=== PATIENT | male | born 1950 | race Caucasian/White ===

== ENCOUNTER 2017-05-31 10:10 | Emergency (ER) | payer MEDICARE ==
[2017-05-31 11:01] LABS: BASOPHILS 0.8 % (0-2); HEMATOCRIT 42.3 % (42.0-54.0); HEMOGLOBIN 14.4 g/dL (13.5-17.5); IMMATURE GRANULOCYTES 0.2 % (0-5); LYMPHOCYTES 28.2 % (15-50); MCH 29.6 pg (26.0-34.0); MEAN PLATELET VOLUME 11.2 fL (7.4-10.4); MONOCYTES 11.8 % (2-11); PLATELET COUNT 167 10x3/uL (130-400); RBC 4.86 10x6/uL (4.20-6.10); RDW 14.8 % (11.5-14.5)
[2017-05-31 11:07] LABS: INR 1.4 (0.85-1.17); PROTIME 16.6 SECONDS (11.6-15.0)
[2017-05-31 11:12] LABS: ALBUMIN 3.5 g/dL (3.4-5.0); ANION GAP 9.5 mmol/L (8-16); BILIRUBIN - TOTAL 0.41 mg/dL (0.2-1.3); CALCIUM 8.9 mg/dL (8.5-10.1); CARBON DIOXIDE 28.8 mmol/L (21.0-32.0); CREATININE - SERUM 1.2 mg/dL (0.6-1.3); POTASSIUM - SERUM 3.3 mmol/L (3.5-5.1); PROTEIN - SERUM 7.5 g/dL (6.4-8.2)
== END 2017-05-31 11:34 | disposition home or self-care (01) ==
LOC: D.ER 10:10
PROVIDERS: Emergency Medicine
DX: I10 Essential (primary) hypertension (principal); I48.91 Unspecified atrial fibrillation; Z85.51 Personal history of malignant neoplasm of bladder

== ENCOUNTER → 2017-09-16 17:01 | Outpatient (CLI) | payer MEDICARE ==
[2017-09-16 20:40] LABS: CALC OSMOLALITY 284 mosm/kg (275-300); CALCIUM 8.9 mg/dL (8.5-10.1); CHLORIDE - SERUM 107 mmol/L (98-107); GLUCOSE 94 mg/dL (74-106); POTASSIUM - SERUM 3.6 mmol/L (3.5-5.1); SODIUM 143 mmol/L (136-145); UREA NITROGEN 13 mg/dL (7-18); eGFR NON AFRICAN AMERICAN 79 mL/min (90-120)
== END | disposition home or self-care (01) ==
LOC: D.LABREF 17:01
PROVIDERS: Internal Medicine Cardiovascular Disease
DX: I10 Essential (primary) hypertension (principal)

== ENCOUNTER → 2018-05-27 17:58 | Outpatient (CLI) | payer MEDICARE ==
[2018-05-27 18:39] LABS: ANION GAP 13.5 mmol/L (8-16); CALCIUM 8.8 mg/dL (8.5-10.1); CARBON DIOXIDE 27.9 mmol/L (21.0-32.0); CREATININE - SERUM 1.1 mg/dL (0.6-1.3); POTASSIUM - SERUM 3.4 mmol/L (3.5-5.1)
== END | disposition home or self-care (01) ==
LOC: D.LABREF 17:58
PROVIDERS: Nurse Practitioner Adult Health
DX: R60.0 Localized edema (principal)

== ENCOUNTER 2018-06-08 12:55 | Inpatient (IN) | payer MEDICARE ==
[~2018-06-08] VITALS: Ht 185.4 cm; Wt 146.1 kg
--- NOTE | ~2018-06-08 | MORECARE ---
CASE MANAGEMENT DISCHARGE SUMMARY PATIENT: DK MENDOZA UNIT: [id number] ADM DATE: 06/08/18 AGE: 67 : 48 SEX: M ROOM/BED: D.1210 AUTHOR: IMELDA,DOC PHYSICIAN: REFERRING PHYSICIAN: MAU VALIENTE MD DATE OF SERVICE: 06/12/18 Discharge Plan Patient Name: DK MENDOZA Facility: [facility]:[place] : 1950 Planned Disposition: Home Anticipated Discharge Date: Discharge Date: 06/11/2018 Expected LOS: Initial Reviewer: [email or web address] Initial Review Date: 06/11/2018 Generated: 06/12/18 12:07 pm Comments DCP- Discharge Planning Updated by [email or web address]: Elizabeth Waggoner on 06/11/18 1:[address] Patient Name: DK MENDOZA Admission Status: ER Accout number: [id number] Admission Date: 06-08-2018 : 1950 Admission Diagnosis: Attending: MAU VALIENTE Current LOS: 3 Anticipated DC Date: 06/11/18 Planned Disposition: Home Primary Insurance: [facility] MEDICARE SOLUTIONS Discharge Planning Comments: CM met with patient about discharge planning / needs. Patient states his plan is to discharge home. 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 States she should be here between 16:00 & 17:00. States his daughter is an RN and will be able to help him get settled back at home. Denies any other discharge planning needs at this time. CM explained and served DC IMM. Will continue to follow and assist as needed with discharge planning / needs. Program Engagement Director: Elizabeth Waggoner DCPIA - Discharge Planning Initial Assessment Updated by [id number]: Elizabeth Waggoner on 06/11/18 1:56 pm * Is the patient Alert and Oriented? Yes * How many steps to enter\exit or inside your home? * PCP Dr Valiente * Pharmacy [facility] * Preadmission Environment Home Alone * ADLs Independent * Equipment CPAP * List name and contact numbers for known caregivers / representatives who currently or will assist patient after discharge: Lori Singh, daughter, * Verbal permission to speak to the caregivers and representatives has been obtained from the patient. N/A * Community resources currently utilized None * Additional services required to return to the preadmission environment? No * Can the patient safely return to the preadmission environment? Yes * Has this patient been hospitalized within the prior 30 days at any hospital? No Coverage Notice Reviewer: [id number] Donna Waggoner Notice Issued Date-Time: 06/11/2018 13:58 Notice Type: IM Discharge Notice Notice Delivered To: Patient Relationship to Patient: Self Lathe Hand Name: Delivery Method: HAND - Hand Delivered Jennifer Days: Prior Verbal Notification: Recipient Understood Notice: Yes Recipient Signature: Yes Med Rec Note Co-signed by Attending: Coverage Notice Comment: Last DP export: 06/11/18 1:07 Patient Name: DK MENDOZA Page 11506 at 1107 All edits/amendments must be made on the electronic document DICTATION DATE: 06/12/186 COUNTER WEIGHER: FAVIOLA 06/12/186 RPT#: [id number] DC DATE:06/11/18 STATUS: DIS IN [facility] [address] [place] [address] END OF REPORT
--- NOTE | ~2018-06-08 | MORECARE ---
CASE MANAGEMENT DISCHARGE SUMMARY PATIENT: DK MENDOZA UNIT: [id number] ADM DATE: 06/08/18 AGE: 67 : 48 SEX: M ROOM/BED: D.1210 AUTHOR: NAHOMI SEGURA PHYSICIAN: REFERRING PHYSICIAN: MAU VALIENTE MD DATE OF SERVICE: 06/11/18 Discharge Plan Patient Name: DK MENDOZA Facility: [facility]:[place] : 1950 Planned Disposition: Home Anticipated Discharge Date: Discharge Date: Expected LOS: Initial Reviewer: [email or web address] Initial Review Date: 06/11/2018 Generated: 06/11/18 2:57 pm DCPIA - Discharge Planning Initial Assessment Updated by [email or web address]: Elizabeth Waggoner on 06/11/18 1:56 pm * Is the patient Alert and Oriented? Yes * How many steps to enter\exit or inside your home? * PCP Dr Valiente * Pharmacy [facility] * Preadmission Environment Home Alone * ADLs Independent * Equipment CPAP * List name and contact numbers for known caregivers / representatives who currently or will assist patient after discharge: Lori Singh, daughter, * Verbal permission to speak to the caregivers and representatives has been obtained from the patient. N/A * Community resources currently utilized None * Additional services required to return to the preadmission environment? No * Can the patient safely return to the preadmission environment? Yes * Has this patient been hospitalized within the prior 30 days at any hospital? No Patient Name: DK MENDOZA Page [id number] at 1357 All edits/amendments must be made on the electronic document DICTATION DATE: 06/11/18 1356 SHAFTING CLEANER: FAVIOLA 06/11/18 1356 RPT#: [id number] DC DATE: STATUS: ADM IN [facility] [address] [place] [address] END OF REPORT
--- NOTE | ~2018-06-08 | MORECARE ---
CASE MANAGEMENT DISCHARGE SUMMARY PATIENT: DK MENDOZA UNIT: [id number] ADM DATE: 06/08/18 AGE: 67 : 48 SEX: M ROOM/BED: D.1210 AUTHOR: IMELDA,DOC PHYSICIAN: REFERRING PHYSICIAN: MAU VALIENTE MD DATE OF SERVICE: 06/11/18 Discharge Plan Patient Name: DK MENDOZA Facility: [facility]:[place] : 1950 Planned Disposition: Home Anticipated Discharge Date: Discharge Date: Expected LOS: Initial Reviewer: [email or web address] Initial Review Date: 06/11/2018 Generated: 06/11/18 3:06 pm Comments DCP- Discharge Planning Updated by [email or web address]: Elizabeth Waggoner on 06/11/18 1:[address] Patient Name: DK MENDOZA Admission Status: ER Accout number: [id number] Admission Date: 06-08-2018 : 1950 Admission Diagnosis: Attending: MAU VALIENTE Current LOS: 3 Anticipated DC Date: 06/11/18 Planned Disposition: Home Primary Insurance: [facility] MEDICARE SOLUTIONS Discharge Planning Comments: CM met with patient about discharge planning / needs. Patient states his plan is to discharge home. 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 States she should be here between 16:00 & 17:00. States his daughter is an RN and will be able to help him get settled back at home. Denies any other discharge planning needs at this time. CM explained and served DC IMM. Will continue to follow and assist as needed with discharge planning / needs. Bag Maker: Elizabeth Waggoner DCPIA - Discharge Planning Initial Assessment Updated by [email or web address]: Elizabeth Waggoner on 06/11/18 1:56 pm * Is the patient Alert and Oriented? Yes * How many steps to enter\exit or inside your home? * PCP Dr Valiente * Pharmacy [facility] * Preadmission Environment Home Alone * ADLs Independent * Equipment CPAP * List name and contact numbers for known caregivers / representatives who currently or will assist patient after discharge: oLri Singh, daughter, * Verbal permission to speak to the caregivers and representatives has been obtained from the patient. N/A * Community resources currently utilized None * Additional services required to return to the preadmission environment? No * Can the patient safely return to the preadmission environment? Yes * Has this patient been hospitalized within the prior 30 days at any hospital? No Coverage Notice Reviewer: [email or web address] Donna Waggoner Notice Issued Date-Time: 06/11/2018 13:58 Notice Type: IM Discharge Notice Notice Delivered To: Patient Relationship to Patient: Self Pulp Tester Name: Delivery Method: HAND - Hand Delivered Jennifer Days: Prior Verbal Notification: Recipient Understood Notice: Yes Recipient Signature: Yes Med Rec Note Co-signed by Attending: Coverage Notice Comment: Last DP export: 06/11/18 12:57 Patient Name: DK MENDOZA Page 17250 at 1407 All edits/amendments must be made on the electronic document DICTATION DATE: 06/11/181405 AERIAL SURVEY TECHNICIAN: FAVIOLA 06/11/18 140 RPT#: [id number] DC DATE: STATUS: ADM IN [facility] [address] [place] [address] END OF REPORT
[2018-06-08] MEDS ORDERED: JANTOVEN5 MG PO (13:01)
[2018-06-08] MEDS ORDERED: CARDURA4 MG PO (13:01)
[2018-06-08] MEDS ORDERED: PROZAC40 MG PO (13:01)
[2018-06-08] MEDS ORDERED: NORMODYNE / TR300 MG PO (13:02)
[2018-06-08] MEDS ORDERED: FUROSEMIDE20 MG (13:02)
[2018-06-08] MEDS ORDERED: KLOR-CON M2020 MEQ (13:02)
[2018-06-08] MEDS ORDERED: PRAVACHOL20 MG (13:02)
[2018-06-08] MEDS ORDERED: SYNTHROID50 MCG (13:02)
[2018-06-08] MEDS ORDERED: BETAPACE 80 MG80 MG (13:02)
[2018-06-08 13:33] LABS: EOSINOPHILS 3.2 % (0-7); HEMOGLOBIN 11.3 g/dL (13.5-17.5); IMMATURE GRANULOCYTES 0.1 % (0-5); LYMPHOCYTES 14.5 % (15-50); MCH 28.9 pg (26.0-34.0); MCHC 33.2 g/dL (31.0-37.0); MEAN PLATELET VOLUME 11.9 fL (7.4-10.4); MONOCYTES 8.3 % (2-11); NEUTROPHILS 72.9 % (40-80); PLATELET COUNT 176 10x3/uL (130-400); RBC 3.91 10x6/uL (4.20-6.10); RDW 14.5 % (11.5-14.5); WBC 6.9 10x3/uL (4.8-10.8)
[2018-06-08 13:58] LABS: APTT 49.5 SECONDS (22.8-39.4); INR 3.63 (0.85-1.17); PROTIME 35.3 SECONDS (11.6-15.0)
[2018-06-08 14:00] VITALS: BP 162/97
[2018-06-08 14:20] LABS: ALBUMIN 3.2 g/dL (3.4-5.0); ALKALINE PHOSPHATASE 52 U/L (46-116); ALT (SGPT) 19 U/L (10-68); BILIRUBIN - TOTAL 2.18 mg/dL (0.2-1.3); CALC OSMOLALITY 281 mosm/kg (275-300); CALCIUM 8.9 mg/dL (8.5-10.1); CARBON DIOXIDE 21.5 mmol/L (21.0-32.0); CHLORIDE - SERUM 105 mmol/L (98-107); CREATINE KINASE 107 UL (21-232); CREATININE - SERUM 1.1 mg/dL (0.6-1.3); GLUCOSE 110 mg/dL (74-106); POTASSIUM - SERUM 3.5 mmol/L (3.5-5.1); PROTEIN - SERUM 7.4 g/dL (6.4-8.2); SODIUM 140 mmol/L (136-145); UREA NITROGEN 17 mg/dL (7-18); eGFR NON AFRICAN AMERICAN 70 mL/min (90-120)
[2018-06-08 14:36] LABS: CKMB 1.3 U/L (0.0-3.6); PRO BNP 3093 pg/mL (0-125); TROPONIN-I < 0.017 ng/mL (0.000-0.060)
[2018-06-08 15:00] VITALS: BP 182/106
[2018-06-08 16:48] LABS: CKMB 1.5 U/L (0.0-3.6); CREATINE KINASE 94 UL (21-232); TROPONIN-I < 0.017 ng/mL (0.000-0.060)
[2018-06-08 17:43] VITALS: BP 176/107; BMI 46.9
[2018-06-08 20:23] VITALS: BP 176/107
[2018-06-08 22:06] LABS: CKMB 1.1 U/L (0.0-3.6); CREATINE KINASE 108 UL (21-232); TROPONIN-I < 0.017 ng/mL (0.000-0.060)
[2018-06-09 00:33] VITALS: BP 157/88
[2018-06-09 04:14] LABS: BASOPHILS 0.9 % (0-2); EOSINOPHILS 4.8 % (0-7); HEMOGLOBIN 11.2 g/dL (13.5-17.5); IMMATURE GRANULOCYTES 0.1 % (0-5); LYMPHOCYTES 11.2 % (15-50); MCH 29.2 pg (26.0-34.0); MCHC 33.9 g/dL (31.0-37.0); MCV 86.2 fL (80.0-100.0); MEAN PLATELET VOLUME 11.8 fL (7.4-10.4); MONOCYTES 10.6 % (2-11); NEUTROPHILS 72.4 % (40-80); PLATELET COUNT 163 10x3/uL (130-400); RBC 3.83 10x6/uL (4.20-6.10); RDW 14.5 % (11.5-14.5); WBC 6.9 10x3/uL (4.8-10.8)
[2018-06-09 04:27] LABS: INR 3.11 (0.85-1.17); PROTIME 31.3 SECONDS (11.6-15.0)
[2018-06-09 04:54] VITALS: BP 181/106
[2018-06-09 04:56] LABS: ALBUMIN 3.5 g/dL (3.4-5.0); ALKALINE PHOSPHATASE 59 U/L (46-116); CALC OSMOLALITY 285 mosm/kg (275-300); CHLORIDE - SERUM 103 mmol/L (98-107); CKMB 1.3 U/L (0.0-3.6); CREATINE KINASE 106 UL (21-232); CREATININE - SERUM 1.1 mg/dL (0.6-1.3); GLUCOSE 85 mg/dL (74-106); PROTEIN - SERUM 7.7 g/dL (6.4-8.2); SODIUM 143 mmol/L (136-145); TROPONIN-I < 0.017 ng/mL (0.000-0.060); UREA NITROGEN 17 mg/dL (7-18); eGFR NON AFRICAN AMERICAN 70 mL/min (90-120)
[2018-06-09 05:09] LABS: ALT (SGPT) 24 U/L (10-68); CARBON DIOXIDE 27.8 mmol/L (21.0-32.0)
[2018-06-09 05:10] LABS: POTASSIUM - SERUM 2.7 mmol/L (3.5-5.1)
[2018-06-09 17:13] LABS: ANION GAP 14.8 mmol/L (8-16); CALCIUM 9.2 mg/dL (8.5-10.1); CARBON DIOXIDE 30.4 mmol/L (21.0-32.0); CREATININE - SERUM 1.2 mg/dL (0.6-1.3)
[2018-06-09 17:15] LABS: POTASSIUM - SERUM 3.2 mmol/L (3.5-5.1)
[2018-06-09 17:56] VITALS: BP 159/89
[2018-06-09 20:00] VITALS: BP 155/91
[2018-06-10 00:02] VITALS: BP 168/84
[2018-06-10 04:00] VITALS: BP 149/83
[2018-06-10 06:43] LABS: BASOPHILS 1.1 % (0-2); EOSINOPHILS 7.4 % (0-7); HEMATOCRIT 37.1 % (42.0-54.0); HEMOGLOBIN 12.4 g/dL (13.5-17.5); IMMATURE GRANULOCYTES 0.2 % (0-5); LYMPHOCYTES 16.3 % (15-50); MCHC 33.4 g/dL (31.0-37.0); MCV 86.9 fL (80.0-100.0); MEAN PLATELET VOLUME 11.7 fL (7.4-10.4); MONOCYTES 10.6 % (2-11); NEUTROPHILS 64.4 % (40-80); PLATELET COUNT 185 10x3/uL (130-400); RBC 4.27 10x6/uL (4.20-6.10); RDW 14.4 % (11.5-14.5); WBC 6.5 10x3/uL (4.8-10.8)
[2018-06-10 07:02] LABS: INR 2.07 (0.85-1.17); PROTIME 22.6 SECONDS (11.6-15.0)
[2018-06-10 07:36] LABS: ANION GAP 15.3 mmol/L (8-16); CALCIUM 9.8 mg/dL (8.5-10.1); CARBON DIOXIDE 30.5 mmol/L (21.0-32.0); CREATININE - SERUM 1.1 mg/dL (0.6-1.3)
[2018-06-10 07:39] LABS: POTASSIUM - SERUM 2.8 mmol/L (3.5-5.1)
[2018-06-10 10:52] VITALS: BP 117/63
[2018-06-10 12:03] VITALS: Ht 185.4 cm; Wt 146.1 kg
[2018-06-10 20:03] VITALS: BP 155/89
[2018-06-11] VITALS: BP 120/70
[2018-06-11 04:58] VITALS: BP 132/82
[2018-06-11 07:06] LABS: BASOPHILS 0.5 % (0-2); EOSINOPHILS 5.9 % (0-7); HEMATOCRIT 38.6 % (42.0-54.0); IMMATURE GRANULOCYTES 0.2 % (0-5); LYMPHOCYTES 13.4 % (15-50); MCH 29.3 pg (26.0-34.0); MCHC 33.7 g/dL (31.0-37.0); MCV 87.1 fL (80.0-100.0); MEAN PLATELET VOLUME 11.7 fL (7.4-10.4); MONOCYTES 10.9 % (2-11); NEUTROPHILS 69.1 % (40-80); PLATELET COUNT 215 10x3/uL (130-400); RBC 4.43 10x6/uL (4.20-6.10); RDW 14.8 % (11.5-14.5)
[2018-06-11 07:10] LABS: PROTIME 18.4 SECONDS (11.6-15.0); WBC 8.6 10x3/uL (4.8-10.8)
[2018-06-11 07:12] LABS: INR 1.6 (0.85-1.17)
[2018-06-11 07:18] LABS: ANION GAP 13.9 mmol/L (8-16); CALCIUM 9.7 mg/dL (8.5-10.1); CARBON DIOXIDE 32.4 mmol/L (21.0-32.0); CREATININE - SERUM 1.4 mg/dL (0.6-1.3); POTASSIUM - SERUM 3.3 mmol/L (3.5-5.1)
[2018-06-11 10:53] VITALS: BP 134/84
[2018-06-11 11:34] VITALS: BP 127/71
[2018-06-11] MEDS ORDERED: JANTOVEN5 MG PO (12:13)
[2018-06-11] MEDS ORDERED: KLOR-CON M2020 MEQ PO (12:15)
[2018-06-11] MEDS ORDERED: FUROSEMIDE20 MG PO (12:17)
[2018-06-11] MEDS ORDERED: COZAAR50 MG PO (12:19)
[2018-06-11 16:47] VITALS: BP 122/79
== END 2018-06-11 18:51 | disposition home or self-care (01) | DRG 291 ==
LOC: D.ER 12:55 → D.EDHOLD 15:47 → D.M3 15:47
PROVIDERS: Family Medicine
DX: I11.0 Hypertensive heart disease with heart failure (principal); I50.31 Acute diastolic (congestive) heart failure; I48.91 Unspecified atrial fibrillation; J44.9 Chronic obstructive pulmonary disease, unspecified; N50.89 Other specified disorders of the male genital organs

== ENCOUNTER 2019-02-14 10:28 | Emergency (ER) | payer MEDICARE ==
[~2019-02-14] VITALS: Ht 185.4 cm; Wt 145.5 kg
[~2019-02-14 10:28] MED LIST: BETAPACE 80 MG80 MG; CARDURA4 MG PO; COZAAR50 MG PO; FUROSEMIDE20 MG; FUROSEMIDE20 MG PO; JANTOVEN5 MG PO; KLOR-CON M2020 MEQ; KLOR-CON M2020 MEQ PO; NORMODYNE / TR300 MG PO; PRAVACHOL20 MG; PROZAC40 MG PO; SYNTHROID50 MCG
[2019-02-14 10:47] VITALS: Ht 185.4 cm; Wt 145.5 kg
[2019-02-14] MEDS ORDERED: BACLOFEN20 M1 PO (11:43)
[2019-02-14] MEDS ORDERED: PREDNISONE20 MG PO (11:43)
[2019-02-14 12:05] VITALS: BP 142/88
== END 2019-02-14 12:06 | disposition home or self-care (01) ==
LOC: D.ER 10:28
DX: M54.5 Low back pain (principal); M54.32 Sciatica, left side